=== PATIENT | male | born 1965 | race Caucasian/White ===

== ENCOUNTER 2016-12-26 10:24 | Emergency (ER) | payer MEDICAID ==
[~2016-12-26] VITALS: Ht 170.2 cm; Wt 65.8 kg
[~2016-12-26 10:24] MED LIST: KEFLEX 500MG.500 MG PO
[2016-12-26] MEDS ORDERED: CLINDAMYCIN HC300 MG PO (10:54)
--- NOTE | 2016-12-26 10:55 | [facility]gent [facility] Report ---
History of Present Issue Date/Time Seen by Provider 12/26/16 1035 Visit Reason Pt arrived:Walked Presenting Problem:PT ADVISED HE GOT HIS FEET COLD AND WET ON MONDAY AND SINCE THEY HAVE BEEN RED, NUMB FEELING, AND SWELLING Location if Accident: Onset of symptoms date/time:/ or onset unknown for:MEDICAL HX UNKNOWN Have you (or family members/close friends) recently traveled outside the [place]? N If Yes, where/when: Have you had exposure to infectious disease within the past month? TB? Other? Specify: Patient state that he was out coon hunting on Monday states that his shoes leaked water and they got cold states that he noticed yesterday that they felt numb on the bottom then today he noticed the right foot looked better but the left foot was red and warm to touch with some swelling so he thought he should get it checked out ALLERGIES Coded Allergies: morphine (Mild, 12/11/15) History Medical History General CAD? No Angina: No [place]: No Hypertension? No Hyperlipidemia? No CHF? No DVT? No PE? No COPD? No Asthma? No Anemia? No GERD? No Gastric ulcers? No GI Bleed? No Hernia? No Thyroid Problems? No Hypothyroidism? No CVA? No Seizures? No Diabetes? No Renal Insuffiency? No UTI? No Stones? No BPH? No GB Disease: No Nephritic Syndrome? No Asplenia? No Hepatitis? No Sickle Cell Disease? No Migraines? No Cataracts? No Glaucoma? No MRSA? No HIV? No TB? No Anxiety? No Cancer? No More? No Immunization HX DT/Tetanus Unknown Surgical Hx Previous Surgery?Y APPENDICITIS LEFT LEG Social History Smoking Hx Smoker: Never Smoker Tobacco: No Alcohol Alcohol: No Review of Systems All Other Systems Reviewed and Negative Skin change in color, other (warmth and swelling) Physical Exam Vital Signs Vital Signs Date Time Temp Pulse Resp B/P Pulse O2 O2 Flow FiO2 Ox Delivery Rate 12/26 1032 98 16 147/98 98 General Appearance normal appearance, no apparent distress Respiratory Status Yes: trachea midline, chest symmetrical, non tender chest. No: respiratory distress. Cardiovascular normal exam Peripheral Pulses Pulses normal Yes Extremities normal capillary refill, inflammation, swelling, left foot cellulitis, red with mild swelling noted, skin warm dry, cap refill present, + pedal pulses noted bilateral. Right foot pink,warm dry no swelling Neurologic alert, normal exam Comments Patient states that he has been soaking feet in epson salt and it has helped some. He says the right foot is alot better but the left foot is still slightly swollen and having pain. Medical Decision Making LABS/Meds/Orders Pt receiving controlled substance in ED? No [facility] Progress Notes Date 12/26/16 Time 1048 Departure Departure Time of Disposition 1049 Disposition DC Home or Self Care(routine) Clinical Impression Primary Impression: Cellulitis Qualifiers: Site of cellulitis: other site Qualified Code: L03.818 - Cellulitis of other sites Condition STABLE Patient Instructions DI for Cellulitis -- Adult Additional Instructions Follow up with family doctor or to the ER immediately if no improvements Need to see Film Projector Operator, Given numbers for several offices in [place] Take medication as prescribed Discharge Counseling Counseled pt/family regarding diagnosis, medications/RX, home care, follow up needs Prescriptions Current Visit Scripts Clindamycin Hcl (Clindamycin 300MG) 300 MG PO QID #40 CAP at [id number]
[2016-12-26 11:03] VITALS: BP 147/98
== END 2016-12-26 11:03 | disposition home or self-care (01) ==
LOC: UTC 10:24
DX: L03.818 Cellulitis of other sites (principal)